=== PATIENT | male | born 1990 | race Caucasian/White ===

== ENCOUNTER 2019-10-28 18:49 | Emergency (ER) | payer MEDICAID, OTHER ==
[~2019-10-28] VITALS: Ht 175.3 cm; Wt 99.8 kg
[~2019-10-28 18:49] MED LIST: ZOLOFT25 MG ORAL
[2019-10-28 19:05] VITALS: BP 132/88
--- NOTE | 2019-10-28 19:05 | NUR ---
ED Nurse Note: Pt walked into ED for medication refill of zolof, hydroxyzine and trazadone. Pt is aaox4, no cardiac or respiratory distress noted and ambulatory with steady gait.
--- NOTE | 2019-10-28 19:19 | Emergency Room Report ---
History of Present Illness General Chief Complaint: Medication Refill Source: Patient Present Illness HPI 29-year-old male with history of opiate abuse currently in rehab and sober living, as well as anxiety depression here requesting medication refill for Zoloft, hydroxyzine, trazodone. I explained to him that trazodone cannot be refilled and patient agrees. Patient denies any suicidal homicidal ideation but reports the last one that he took Zoloft was 2 days ago. Reports that he has an upcoming appointment in 2 weeks with a psychiatrist. Patient is in assisted living and has not been able to make it to his previous appointment with psychiatrist. Patient sitting comfortably with stable vital signs. Denies any recent travel fever chills or URI symptoms. Allergies: Coded Allergies: No Known Allergies (Unverified , 12/24/18) Patient History Past Medical History: see triage record Past Surgical History: none Family History: none Immunizations: UTD Reviewed Nursing Documentation: PMH: Agreed; PSxH: Agreed Nursing Documentation-PMH Past Medical History: No History, Except For History Of Psychiatric Problem: Yes - depression, anxiety Review of Systems All Other Systems: negative except mentioned in HPI Physical Exam Vital Signs Date Time Temp Pulse Resp B/P (MAP) Pulse Ox O2 Delivery O2 Flow Rate FiO2 10/28/19 18:58 98.6 84 18 132/88 (103) 96 Room Air Sp02 EP Interpretation: reviewed, normal General Appearance: alert/responsive, no apparent distress, GCS 15, non-toxic Head: atraumatic Eyes: PERRL, lids + conjunctiva normal ENT: hearing intact, no angioedema Neck: supple/symm/no masses, no meningismus Respiratory: effort normal, no wheezing, chest symmetrical Cardiovascular: regular rate, rhythm, no edema Gastrointestinal: non-tender, no mass, non-distended, no rebound/guarding, normal bowel sounds Musculoskeletal: gait & station normal, normal ROM, strength & tone normal, non -tender Neurologic: oriented x3, sensory intact, normal speech Psychiatric: judgment & insight normal, no suicidal/homicidal ideation, no delusions Skin: no rash Lymphatic: normal inspection Medical Decision Making PA Attestation All my diagnosis and treatment plans were reviewed ad discussed with my supervising physician Dr. Bernstein Diagnostic Impression: Primary Impression: Medication refill ER Course 29-year-old male with history of opiate abuse currently in rehab and sober living, as well as anxiety depression here requesting medication refill for Zoloft, hydroxyzine, trazodone. I explained to him that trazodone cannot be refilled and patient agrees. Patient denies any suicidal homicidal ideation but reports the last one that he took Zoloft was 2 days ago. Reports that he has an upcoming appointment in 2 weeks with a psychiatrist. Patient is in assisted living and has not been able to make it to his previous appointment with psychiatrist. Patient sitting comfortably with stable vital signs. Denies any recent travel fever chills or URI symptoms. Ddx considered but are not limited to: generalized anxiety disorder, panic attack, depression with psycotic featurs, bipolar disorder, drug overdose Vital signs: are WNL, pt. is afebrile H&PE are most consistent with: Medication refill for anxiety ORDERS: Zoloft, and hydroxyzine for 2-week supply ED INTERVENTIONS: First dose of Zoloft DISCHARGE: At this time pt. is stable for d/c to home. Will provide printed patient care instructions, and any necessary prescriptions. Care plan and follow up instructions have been discussed with the patient prior to discharge. Follow-up primary doctor, and psychiatrist, if worsening symptoms return to the emergency room Last Vital Signs Date Time Temp Pulse Resp B/P (MAP) Pulse Ox O2 Delivery O2 Flow Rate FiO2 10/28/19 18:58 98.6 84 18 132/88 (103) 96 Room Air Disposition: HOME, SELF-CARE Condition: Stable Scripts Hydroxyzine Hcl (HYDROXYZINE HCL) 25 Mg Tablet 25 MG PO BID for 14 Days, #28 TAB Prov: Bernie Paez 10/28/19 Sertraline Hcl* (ZOLOFT*) 100 Mg Tablet 100 MG PO DAILY for 14 Days, #14 TAB Prov: Bernie Paez 10/28/19 Patient Instructions: Medicine Refill at the Emergency Department Bernie Paez Oct 28, 2019 19:19
[2019-10-28] MEDS ORDERED: SERTRALINE HCL100 MG PO (19:20)
[2019-10-28] MEDS ORDERED: HYDROXYZINE HCL25 M1 PO (19:21)
[2019-10-28] MEDS ORDERED: Sertraline 50mg tab ORAL ONE (19:30)
[2019-10-28 20:00] VITALS: BP 130/75
--- NOTE | 2019-10-28 20:00 | NUR ---
ER DISCHARGE NOTE: Patient is cleared to be discharged per ERMD, pt is aox4, on room air, with stable vital signs. pt was given dc and prescription instructions, pt was able to verbalize understanding, pt id band removed. pt is able to ambulate with steady gait. pt took all belongings.
== END 2019-10-28 20:00 | disposition home or self-care (01) ==
LOC: EMR 20:00
DX: F32.9 Major depressive disorder, single episode, unspecified (principal); F41.9 Anxiety disorder, unspecified; Z76.0 Encounter for issue of repeat prescription
CPT/HCPCS: 99282

== ENCOUNTER 2020-01-24 22:12 | Emergency (ER) | payer MEDICAID, OTHER ==
[~2020-01-24] VITALS: Ht 175.3 cm; Wt 99.8 kg
[~2020-01-24 22:12] MED LIST changes: +HYDROXYZINE HCL25 M1 PO; +SERTRALINE HCL100 MG PO
[2020-01-24 22:25] VITALS: BP 118/72
[2020-01-24] MEDS ORDERED: TRAZODONE HCL50 MG ORAL (22:26)
[2020-01-24] MEDS ORDERED: ADDERAL20 MG ORAL (22:26)
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
[2020-01-24] MEDS ORDERED: ALPRAZOLAM1 MG ORAL (22:48)
[2020-01-24] MEDS ORDERED: ROBAXIN-500MG ORAL (22:55)
[2020-01-24] MEDS ORDERED: IBUPROFEN600 M1 ORAL (22:55)
[2020-01-24 23:05] VITALS: BP 115/75
== END 2020-01-24 23:05 | disposition home or self-care (01) ==
LOC: EMR 22:45
DX: S16.1XXA Strain of muscle, fascia and tendon at neck level, initial encounter (principal); R20.2 Paresthesia of skin; M62.838 Other muscle spasm; M54.9 Dorsalgia, unspecified; V43.62XA Car passenger injured in collision with other type car in traffic accident, initial encounter; Y92.410 Unspecified street and highway as the place of occurrence of the external cause; Z79.899 Other long term (current) drug therapy; Z87.891 Personal history of nicotine dependence; F41.9 Anxiety disorder, unspecified; F32.9 Major depressive disorder, single episode, unspecified
CPT/HCPCS: 99282

== ENCOUNTER 2020-01-27 00:48 | Emergency (ER) | payer MEDICAID, OTHER ==
[~2020-01-27] VITALS: Ht 175.3 cm; Wt 99.8 kg
[~2020-01-27 00:48] MED LIST changes: +ADDERAL20 MG ORAL; +ALPRAZOLAM1 MG ORAL; +IBUPROFEN600 M1 ORAL; +ROBAXIN-500MG ORAL; +TRAZODONE HCL50 MG ORAL
[2020-01-27 01:00] VITALS: BP 101/66
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
[2020-01-27 01:05] VITALS: BP 101/66
--- NOTE | 2020-01-27 01:05 | NUR ---
ER DISCHARGE NOTE: Patient is cleared to be discharged per ERMD, pt is aox4, on room air, with stable vital signs. pt was given dc instructions, pt was able to verbalize understanding, pt id band removed. pt is able to ambulate with steady gait. pt took all belongings.
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
== END 2020-01-27 01:05 | disposition home or self-care (01) ==
LOC: EMR 01:00
DX: S00.83XA Contusion of other part of head, initial encounter (principal); S20.211A Contusion of right front wall of thorax, initial encounter; Y04.2XXA Assault by strike against or bumped into by another person, initial encounter; Y92.9 Unspecified place or not applicable
CPT/HCPCS: 99281

== ENCOUNTER 2020-05-12 03:01 | Emergency (ER) | payer OTHER ==
[~2020-05-12] VITALS: Ht 175.3 cm; Wt 90.7 kg
[2020-05-12 03:02] VITALS: BP 133/93
--- NOTE | 2020-05-12 03:02 | NUR ---
ED Nurse Note: pt ambulated into ed from home CO of chest discomfort described as "tightness, pressure, numbness" x 5 days and report s/p "fast" HR. Pt denies drug or alcohol use or smoking. Pt denies n/v/d/fever. Pt aao x 4, ambulates with steady gait, VSS no ss of distress noted. Will continue to monitor. ERMD at bedside. Awaiting further orders.
--- NOTE | 2020-05-12 03:10 | NUR ---
ED Nurse Note: THEATRICAL AGENT at bedside for EKG
[2020-05-12] MEDS ORDERED: Aspirin Baby 81mg ORAL ONE (03:15)
--- NOTE | 2020-05-12 03:23 | Emergency Room Report ---
History of Present Illness General Chief Complaint: Chest Pain Source: Patient Present Illness HPI 29-year-old male with a history of anxiety, for more use of injection heroin, on Zoloft and trazodone, here with chest tightness and palpitations. Patient says his symptoms have been ongoing for 5 days. Says that he had gradual onset of chest tightness diffusely worse on the left side. Said he intermittently feels anxious and has palpitations with this. No fevers, chills, vision changes, chest pain, shortness of breath, back pain, abdominal pain, diaphoresis, nausea, vomiting, diarrhea, dysuria. Denies alcohol use or illegal drug use. Denies long car rides or plane rides. He is an every day smoker. No surgical history. No family history of clotting disorders or other blood clots at an early age. Allergies: Coded Allergies: No Known Allergies (Unverified , 12/24/18) COVID-19 Screening Contact w/high risk pt: No Recent Travel to affected area: No Experienced COVID-19 symptoms?: No COVID-19 Testing performed SENIOR FRONT END DEVELOPER: No Review of Systems All Other Systems: negative except mentioned in HPI Physical Exam Vital Signs Date Time Temp Pulse Resp B/P (MAP) Pulse Ox O2 Delivery O2 Flow Rate FiO2 05/12/20 03:02 98.6 95 14 133/93 (106) 97 Room Air Sp02 EP Interpretation: reviewed, normal General Appearance: no apparent distress, alert, GCS 15, non-toxic Head: normocephalic, atraumatic Eyes: bilateral eye normal inspection, bilateral eye PERRL ENT: hearing grossly normal, normal pharynx, no angioedema, normal voice Neck: full range of motion, supple/symm/no masses Respiratory: chest non-tender, lungs clear, normal breath sounds, speaking full sentences Cardiovascular #1: regular rate, rhythm, no edema Cardiovascular #2: 2+ carotid (R), 2+ carotid (L), 2+ radial (R), 2+ radial (L), 2+ dorsalis pedis (R), 2+ dorsalis pedis (L) Gastrointestinal: normal bowel sounds, non tender, soft, non-distended, no guarding, no rebound Rectal: deferred Genitourinary: normal inspection, no CVA tenderness Musculoskeletal: back normal, normal range of motion, gait/station normal, non- tender Neurologic: alert, motor strength/tone normal, oriented x3, sensory intact, responsive, speech normal Psychiatric: judgement/insight normal, memory normal, mood/affect normal, no suicidal/homicidal ideation Reflexes: 3+ bicep (R), 3+ bicep (L), 3+ tricep (R), 3+ tricep (L), 3+ knee (R), 3+ knee (L) Lymphatic: no adenopathy Medical Decision Making Diagnostic Impression: Primary Impression: Chest pain Additional Impressions: Palpitations Anxiety ER Course 29-year-old male on Zoloft and trazodone and history of anxiety here with chest tightness and palpitations. PERC negative. He had a heart score of 0. CBC and CMP were unremarkable. Troponin negative. Chest x-ray unremarkable. EKG: NSR, no ischemia, intervals WNL. No ectopy Rhythm strip: patient monitored for arrhythmias - no malignant dysrhythmias, runs of PVCs, nor pauses noted EKG was normal without any evidence of ischemia. Patient was given an aspirin on arrival to the emergency department. He was given 1 mg Ativan p.o. with resolution of his symptoms. ddx: ACS, dissection, PE, PTX, pericarditis, myocarditis, musculoskeletal, GERD/GI conditions, anxiety Low likelihood of ACS or cardiopulmonary cause for his symptoms at this time. Was told to come back to the emergency department if he has any worsening symptoms. He will follow-up with his primary care provider. Discharged in stable condition. Laboratory Tests Test 05/12/20 03:14 White Blood Count 9.1 K/UL (4.8-10.8) Red Blood Count 5.12 M/UL (4.70-6.10) Hemoglobin 15.7 G/DL (14.2-18.0) Hematocrit 43.7 % (42.0-52.0) Mean Corpuscular Volume 85 FL (80-99) Mean Corpuscular Hemoglobin 30.6 PG (27.0-31.0) Mean Corpuscular Hemoglobin Concent 35.9 G/DL (32.0-36.0) Red Cell Distribution Width 12.1 % (11.6-14.8) Platelet Count 246 K/UL (150-450) Mean Platelet Volume 6.6 FL (6.5-10.1) Neutrophils (%) (Auto) 56.8 % (45.0-75.0) Lymphocytes (%) (Auto) 34.5 % (20.0-45.0) Monocytes (%) (Auto) 6.4 % (1.0-10.0) Eosinophils (%) (Auto) 1.4 % (0.0-3.0) Basophils (%) (Auto) 1.0 % (0.0-2.0) Sodium Level 140 MMOL/L (136-145) Potassium Level 3.8 MMOL/L (3.5-5.1) Chloride Level 103 MMOL/L (98-107) Carbon Dioxide Level 29 MMOL/L (21-32) Anion Gap 8 mmol/L (5-15) Blood Urea Nitrogen 12 mg/dL (7-18) Creatinine 0.9 MG/DL (0.55-1.30) Estimated Glomerular Filtration Rate > 60 mL/min (>60) Glucose Level 95 MG/DL (74-106) Calcium Level 8.5 MG/DL (8.5-10.1) Total Bilirubin 0.2 MG/DL (0.2-1.0) Aspartate Amino Transferase (AST) 16 U/L (15-37) Alanine Aminotransferase (ALT) 29 U/L (12-78) Alkaline Phosphatase 68 U/L (46-116) Troponin I 0.000 ng/mL (0.000-0.056) Total Protein 7.4 G/DL (6.4-8.2) Albumin 3.9 G/DL (3.4-5.0) Globulin 3.5 g/dL Albumin/Globulin Ratio 1.1 (1.0-2.7) Urine Opiates Screen Negative (NEGATIVE) Urine Barbiturates Screen Negative (NEGATIVE) Phencyclidine (PCP) Screen Negative (NEGATIVE) Urine Amphetamines Screen Negative (NEGATIVE) Urine Benzodiazepines Screen Negative (NEGATIVE) Urine Cocaine Screen Negative (NEGATIVE) Urine Marijuana (THC) Screen Negative (NEGATIVE) Serum Alcohol < 3 mg/dL Last Vital Signs Date Time Temp Pulse Resp B/P (MAP) Pulse Ox O2 Delivery O2 Flow Rate FiO2 05/12/20 03:02 98.6 95 14 133/93 (106) 97 Room Air Scripts Lorazepam* (ATIVAN*) 1 Mg Tablet 1 MG ORAL BEDTIME, #5 TAB Prov: Brian Munoz M.D. 05/12/20 Referrals: NON PHYSICIAN (PCP) Brian Munoz M.D. May 12, 2020 03:22
[2020-05-12] MEDS ORDERED: LORazepam 1mg tab ORAL ONE (03:30)
--- NOTE | 2020-05-12 03:30 | NUR ---
ED Nurse Note: Xray at bedside
--- NOTE | 2020-05-12 03:50 | NUR ---
ED Nurse Note: all blood work and ua sent to lab
[2020-05-12 03:58] LABS: EOSINOPHILS % (AUTO) 1.4 % (0.0-3.0); HEMATOCRIT 43.7 % (42.0-52.0); HEMOGLOBIN 15.7 G/DL (14.2-18.0); LYMPHOCYTES % (AUTO) 34.5 % (20.0-45.0); MEAN CORPUSCULAR VOLUME 85 FL (80-99); MONOCYTES % (AUTO) 6.4 % (1.0-10.0); NEUTROPHILS % (AUTO) 56.8 % (45.0-75.0); PLATELET COUNT 246 K/UL (150-450); RED BLOOD COUNT 5.12 M/UL (4.70-6.10); RED CELL DISTRIBUTION WIDTH 12.1 % (11.6-14.8); WHITE BLOOD COUNT 9.1 K/UL (4.8-10.8)
[2020-05-12 04:08] LABS: ANION GAP 8 mmol/L (5-15); BLOOD UREA NITROGEN 12 mg/dL (7-18); CALCIUM 8.5 MG/DL (8.5-10.1); CARBON DIOXIDE 29 MMOL/L (21-32); CHLORIDE 103 MMOL/L (98-107); CREATININE 0.9 MG/DL (0.55-1.30); POTASSIUM 3.8 MMOL/L (3.5-5.1); SODIUM 140 MMOL/L (136-145)
[2020-05-12 04:13] LABS: ALANINE AMINOTRANSFERASE 29 U/L (12-78); ALBUMIN 3.9 G/DL (3.4-5.0); ALBUMIN/GLOBULIN RATIO 1.1 (1.0-2.7); ALKALINE PHOSPHATASE 68 U/L (46-116); ASPARTATE AMINO TRANSFERASE 16 U/L (15-37); BILIRUBIN,TOTAL 0.2 MG/DL (0.2-1.0)
[2020-05-12] MEDS ORDERED: ATIVAN1 MG ORAL (04:18)
--- NOTE | 2020-05-12 04:30 | NUR ---
ED Nurse Note: ERMD at bedside
[2020-05-12 04:42] VITALS: BP 127/72
--- NOTE | 2020-05-12 04:42 | NUR ---
ER DISCHARGE NOTE: Patient is cleared to be discharged home per ERMD, pt is aox4, 99% on room air, with stable vital signs. pt was given dc and prescription instructions, pt was able to verbalize understanding, pt id band and iv site removed without complications. pt is able to ambulate with steady gait. pt took all belongings.
--- NOTE | 2020-05-13 06:19 | Diagnostic Imaging Report ---
EXAM: XR Chest, 1 View CLINICAL HISTORY: CP TECHNIQUE: Frontal view of the chest. COMPARISON: No relevant prior studies available. FINDINGS: The cardiac and mediastinal silhouettes are unremarkable. Negative for parenchymal consolidation, pneumothorax or pleural fluid collections.
== END 2020-05-12 04:42 | disposition home or self-care (01) ==
LOC: EMR 03:17
DX: R07.9 Chest pain, unspecified (principal); R00.2 Palpitations; F41.9 Anxiety disorder, unspecified
CPT/HCPCS: 36415; 71045; 80053; 80307; 84484; 85025; 93005; G0480; Z7502; 99283